=== PATIENT | male | born 1985 | race Caucasian/White ===

== ENCOUNTER → 2019-08-30 | Outpatient (CLI) | payer OTHER ==
[2019-08-30 08:13] LABS: BASOPHIL % 0.4 % (0-2); PLATELET COUNT 214 x10^3mcL (130-400); RED CELL DISTRIBUTION WIDTH 12.7 % (11.5-14.5)
[2019-08-30 08:20] LABS: ALKALINE PHOSPHATASE 52 U/L (46-116); CREATININE SERUM 0.9 mg/dL (0.7-1.3); GFR1 > 60 mL/min; SODIUM SERUM 141 mmol/L (136-145); TRIGLYCERIDES 126 mg/dL (<150)
[2019-08-30 08:23] LABS: ALT/SGPT 46 U/L (16-63); AST/SGOT 15 U/L (15-37); BILIRUBIN TOTAL 0.53 mg/dL (0.20-1.00); CALCIUM 8.9 mg/dL (8.5-10.1); CARBON DIOXIDE 30.3 mmol/L (21-32); CHLORIDE SERUM 105 mmol/L (98-107); CHOLESTEROL 169 mg/dL (<200); FREE T4 0.94 ng/dL (0.76-1.46); GLUCOSE SERUM 111 mg/dL (74-106); POTASSIUM SERUM 4.5 mmol/L (3.5-5.1); TOTAL PROTEIN, SERUM 7.9 g/dL (6.4-8.2)
[2019-08-30 08:26] LABS: CHOLESTEROL/HDL RATIO 6.5; HDL CHOLESTEROL 26 mg/dL (40-60)
[2019-08-30 09:03] LABS: microscopic required? YES; urine erythrocyte TRACE (NEGATIVE)
== END | disposition home or self-care (01) ==
LOC: LB 07:08
DX: Z00.00 Encounter for general adult medical examination without abnormal findings (principal); E55.9 Vitamin D deficiency, unspecified
CPT/HCPCS: 84439

== ENCOUNTER → 2020-05-02 | Outpatient (CLI) | payer OTHER ==
[2020-05-02 07:31] LABS: BASOPHIL % 0.4 % (0-2); PLATELET COUNT 207 x10^3mcL (130-400); RED CELL DISTRIBUTION WIDTH 12.7 % (11.5-14.5)
[2020-05-02 07:47] LABS: ALBUMIN 3.8 g/dL (3.4-5.0); ALKALINE PHOSPHATASE 39 U/L (46-116); ALT/SGPT 63 U/L (16-63); AST/SGOT 25 U/L (15-37); BILIRUBIN TOTAL 0.4 mg/dL (0.20-1.00); CALCIUM 8.4 mg/dL (8.5-10.1); CHLORIDE SERUM 105 mmol/L (98-107); CHOLESTEROL 159 mg/dL (<200); CHOLESTEROL/HDL RATIO 5.9; GFR1 > 60 mL/min; GLUCOSE SERUM 113 mg/dL (74-106); HDL CHOLESTEROL 27 mg/dL (40-60); POTASSIUM SERUM 4.2 mmol/L (3.5-5.1); SODIUM SERUM 140 mmol/L (136-145); TOTAL PROTEIN, SERUM 7.1 g/dL (6.4-8.2); TRIGLYCERIDES 79 mg/dL (<150)
[2020-05-02 07:52] LABS: T3 TOTAL 1.42 ng/mL
[2020-05-02 07:57] LABS: FREE THYROXINE INDEX 2.4 ug/dL (1.4-4.5); T4(THYROXINE) 7.3 ug/dL (4.7-13.3)
== END | disposition home or self-care (01) ==
LOC: LB 07:00
PROVIDERS: ATTEND Family Medicine
DX: Z00.00 Encounter for general adult medical examination without abnormal findings (principal)
CPT/HCPCS: 84439

== ENCOUNTER 2020-08-08 09:21 | Inpatient (IN) | payer OTHER ==
[~2020-08-08] VITALS: Ht 182.9 cm; Wt 125.6 kg
[2020-08-08 09:26] VITALS: Ht 182.9 cm; Wt 125.6 kg
[2020-08-08 10:23] LABS: microscopic required? NO
[2020-08-08 10:37] LABS: BASOPHIL % 0.4 % (0-2); PLATELET COUNT 211 x10^3mcL (130-400); RED CELL DISTRIBUTION WIDTH 12.6 % (11.5-14.5)
[2020-08-08 10:40] LABS: CALCIUM 8.6 mg/dL (8.5-10.1); CARBON DIOXIDE 32.4 mmol/L (21-32); CHLORIDE SERUM 101 mmol/L (98-107); GFR1 > 60 mL/min; GLUCOSE SERUM 93 mg/dL (74-106); POTASSIUM SERUM 3.7 mmol/L (3.5-5.1); SODIUM SERUM 138 mmol/L (136-145)
[2020-08-08 10:43] LABS: UA SPECIFIC GRAVITY 1.025 (1.005-1.035); urine erythrocyte NEGATIVE (NEGATIVE)
[2020-08-08 10:44] LABS: ALKALINE PHOSPHATASE 45 U/L (46-116); ALT/SGPT 46 U/L (16-63); AST/SGOT 24 U/L (15-37); BILIRUBIN TOTAL 0.43 mg/dL (0.20-1.00); CHOLESTEROL 162 mg/dL (<200); LIPASE 205 IU/L (73-393); TOTAL PROTEIN, SERUM 7.6 g/dL (6.4-8.2); TRIGLYCERIDES 110 mg/dL (<150)
[2020-08-08 10:46] LABS: CHOLESTEROL/HDL RATIO 5.6; HDL CHOLESTEROL 29 mg/dL (40-60)
[2020-08-08 10:55] LABS: AMPHETAMINE QUAL UR NONE DETECTED (See below)
[2020-08-08 10:56] LABS: T3 TOTAL 1.15 ng/mL
[2020-08-08 11:09] LABS: FREE T4 0.94 ng/dL (0.76-1.46); FREE THYROXINE INDEX 2.7 ug/dL (1.4-4.5); T4(THYROXINE) 8.3 ug/dL (4.7-13.3)
[2020-08-08] MEDS ORDERED: GLUMETZA500 MG (11:43)
[2020-08-08 14:56] VITALS: BP 152/84
== END 2020-08-08 17:26 | disposition left against medical advice (07) | DRG 313 ==
LOC: ED 09:21 → DU 11:45
PROVIDERS: Specialist; ADMIT Family Medicine; ATTEND Family Medicine
DX: R07.9 Chest pain, unspecified (principal); E11.9 Type 2 diabetes mellitus without complications; Z79.82 Long term (current) use of aspirin; Z20.828 Contact with and (suspected) exposure to other viral communicable diseases
CPT/HCPCS: 83880; 84439; G0378; J1885; J7030; Q0092

== ENCOUNTER → 2020-08-22 | Outpatient (CLI) | payer OTHER ==
[~2020-08-22] MED LIST: GLUMETZA500 MG
[2020-08-22 08:23] LABS: CALCIUM 8.8 mg/dL (8.5-10.1); CHLORIDE SERUM 104 mmol/L (98-107); CHOLESTEROL 163 mg/dL (<200); CREATININE SERUM 0.9 mg/dL (0.7-1.3); GFR1 > 60 mL/min; GLUCOSE SERUM 107 mg/dL (74-106); POTASSIUM SERUM 4.8 mmol/L (3.5-5.1); SODIUM SERUM 140 mmol/L (136-145); TRIGLYCERIDES 58 mg/dL (<150)
[2020-08-22 08:26] LABS: CHOLESTEROL/HDL RATIO 5.1; HDL CHOLESTEROL 32 mg/dL (40-60)
== END | disposition home or self-care (01) ==
LOC: LB 07:04
DX: E55.9 Vitamin D deficiency, unspecified (principal); E66.9 Obesity, unspecified; E78.5 Hyperlipidemia, unspecified